=== PATIENT | male | born 1945 | race Caucasian/White ===

== ENCOUNTER 2018-09-18 12:32 | Outpatient (CLI) | payer MEDICARE, OTHER ==
[2018-09-18 13:06] LABS: CREATININE 1.4 mg/dL (0.6-1.2)
== END 2018-09-18 12:33 | disposition home or self-care (01) ==
LOC: LAB 12:32
PROVIDERS: ATTEND Student in an Organized Health Care Education/Training Program
DX: R31.9 Hematuria, unspecified (principal)
CPT/HCPCS: 36415; 82565; 84153

== ENCOUNTER 2018-10-01 11:24 | Outpatient (CLI) | payer MEDICARE, OTHER ==
[2018-10-01 19:05] LABS: BASOPHILS % (AUTO) 1.9 %; EOSINOPHILS % (AUTO) 1.2 %; HGB - HEMOGLOBIN 12.3 g/dL (14.0-18.0); LYMPHOCYTES % (AUTO) 14.6 %; MEAN CORPUSCULAR HEMOGLOBIN 28.5 pg (27.0-31.0); MEAN CORPUSCULAR HGB CONC 34.1 g/dL (32.0-36.0); MEAN CORPUSCULAR VOLUME 83.6 fL (80.0-94.0); MEAN PLATELET VOLUME 8.1 fL (7.4-11.4); NEUTROPHILS % (AUTO) 74.3 %; PLT - PLATELET COUNT 67 10^3/uL (130-450); RED BLOOD COUNT 4.32 10^6/uL (4.70-6.10); RED CELL DISTRIBUTION WIDTH 14.6 % (12.0-15.0); WHITE BLOOD COUNT 5.4 x10^3/uL (4.8-10.8)
[2018-10-01 19:17] LABS: ABNORMAL LYMPHS % (MANUAL) 0 %
[2018-10-01 19:32] LABS: ALBUMIN 3.5 g/dL (3.2-5.5); BILIRUBIN,TOTAL 1.2 mg/dL (0.2-1.0); CALCIUM 9.5 mg/dL (8.5-10.3); CREATININE 1.1 mg/dL (0.6-1.2); TOTAL PROTEIN 7.1 g/dL (6.7-8.2)
[2018-10-01 19:37] LABS: BAND NEUTROPHILS % (MANUAL) 7 %; BASOPHILS # (MANUAL) 0.2 10^3/uL (0-0.1); BASOPHILS % (MANUAL) 3 %; EOSINOPHILS # (MANUAL) 0.1 10^3/uL (0-0.7); LYMPHOCYTES # (MANUAL) 0.5 10^3/uL (1.5-3.5); LYMPHOCYTES % (MANUAL) 10 %; MONOCYTES # (MANUAL) 0.4 10^3/uL (0.0-1.0); NEUTROPHILS # (MANUAL) 4.2 10^3/uL (1.5-6.6); NEUTROPHILS % (MANUAL) 70 %; PLATELET ESTIMATE, MANUAL DECREASED (<130,000) (NORMAL); PLATELET MORPHOLOGY NORMAL APPEARANCE (NORMAL); RBC MORPHOLOGY (MULTIPLE) 1+ POLYCHROMASIA (NORMAL)
[2018-10-01 19:38] LABS: DIFFERENTIAL COMMENT MANUAL DIFFERENTIAL
== END 2018-10-01 23:59 | disposition home or self-care (01) ==
LOC: LAB.WCP 11:24
PROVIDERS: ATTEND Family Medicine
DX: C61 Malignant neoplasm of prostate (principal); D69.3 Immune thrombocytopenic purpura
CPT/HCPCS: 36415; 80053; 84153; 84443; 85025